=== PATIENT | male | born 1970 | race Caucasian/White ===

== ENCOUNTER 2024-01-05 07:14 | Inpatient (IN) | payer BC, OTHER ==
[2024-01-05] VITALS (21 sets, daily range): BP systolic 115–149; BP diastolic 75–99; PULSE 106–123; RESP 11–20; TEMP 97.5–98.7; O2SAT 92–99
[~2024-01-05] VITALS: Ht 172.7 cm; Wt 88.9 kg
--- NOTE | 2024-01-05 07:30 | NUR ---
Ohlfs in room with patient
[2024-01-05 07:43] LABS: EOSINOPHILS # (AUTO) 0.3 X10'3 (0-0.9); MONOCYTES # (AUTO) 0.7 X10'3 (0-0.9)
[2024-01-05 07:45] LABS: BASOPHILS % (AUTO) 0.8 % (0-1); EOSINOPHILS % (AUTO) 5.2 % (0-6); HEMATOCRIT 37.6 % (42.0-52.0); HEMOGLOBIN 13.1 g/dl (14.0-17.9); LYMPHOCYTES % (AUTO) 55.1 % (21-51); MEAN CORPUSCULAR HEMOGLOBIN 36.1 PG (27.0-31.0); MEAN CORPUSCULAR HGB CONC 34.8 g/dL (33.0-36.5); MEAN CORPUSCULAR VOLUME 103.9 FL (78-98); MEAN PLATELET VOLUME 6.3 FL (7.4-10.4); MONOCYTES % (AUTO) 13.5 % (2-12); NEUTROPHILS # (AUTO) 1.4 X10'3 (1.8-7.7); NEUTROPHILS % (AUTO) 25.4 % (42-75); PLATELET COUNT 299 X10'3 (140-440); RED BLOOD COUNT 3.62 X10'6 (4.70-6.10); RED CELL DISTRIBUTION WIDTH 13.1 % (11.5-14.5); WHITE BLOOD COUNT 5.4 X10'3 (4.5-11.0)
--- NOTE | 2024-01-05 07:47 | NUR ---
US in room with patient
[2024-01-05 08:02] LABS: ALBUMIN 4.1 G/DL (3.4-5.0); ANION GAP 14 (8-16); BLOOD UREA NITROGEN 32 MG/DL (7-18); BUN/CREATININE RATIO 22.5 (10.0-20.0); CALCIUM 9.6 MG/DL (8.5-10.1); CHLORIDE 98 MMOL/L (99-107); CREATININE 1.42 MG/DL (0.60-1.10); GLUCOSE 110 MG/DL (70-104); LIPASE 45 U/L (16-77); POTASSIUM 3.6 MMOL/L (3.5-5.1); SODIUM 139 MMOL/L (135-145); TOTAL CARBON DIOXIDE 27.5 MMOL/L (24-32); eCRCL 57 ML/MIN; eGFR 52 ML/MIN
[2024-01-05 08:26] LABS: PLATELET ESTIMATE NORMAL; TOTAL CELLS COUNTED 100
--- NOTE | 2024-01-05 08:42 | NUR ---
patient ambulated to the bathroom.
[2024-01-05 08:48] LABS: BILIRUBIN,URINE NEGATIVE (Neg); CLARITY,URINE CLEAR (Clear); COLOR,URINE YELLOW (Yellow); GLUCOSE, URINE NEGATIVE (Neg); KETONES,URINE NEGATIVE (Neg); LEUKOCYTE ESTERASE ,URINE NEGATIVE (Neg); NITRITES, URINE NEGATIVE (Neg); OCCULT BLOOD,URINE NEGATIVE (Neg); PROTEIN,URINE NEGATIVE (Neg); UROBILINOGEN,URINE 0.2 E.U/dL (0.2-1.0)
[2024-01-05 08:52] LABS: UA COLLECTION TYPE CLN CATCH MIDSTREAM
[2024-01-05] MEDS: normal saline 1000ML IV soln IVB ONE (08:52)
--- NOTE | 2024-01-05 08:52 | NUR ---
patient back in room and attached to monitor
[2024-01-05] MEDS ORDERED: FLUT15.87 NAS (09:10)
--- NOTE | 2024-01-05 09:17 | NUR ---
Dr Summers hospitalist resident at bedside to assess pt and discuss plan of care.
[2024-01-05] MEDS ORDERED: magnesium sulf-water 2g/50mL 50 ML IV PRN (09:30)
[2024-01-05] MEDS ORDERED: magnesium Cl slow-release 64mg tablet PO PRN (09:30)
[2024-01-05] MEDS ORDERED: potassium Cl 40MEQ/1/2NS 520ml 520 ML IV PRN (09:30)
[2024-01-05] MEDS ORDERED: magnesium sulf-water 4G/100mL 100 ML IV PRN (09:30)
[2024-01-05] MEDS ORDERED: mag hydrox/Alum hydrox/simeth 30ml oral suspension PO PRN (09:30)
[2024-01-05] MEDS ORDERED: magnesium hydroxide 30ml (MOM) UD suspension PO PRN (09:30)
[2024-01-05] MEDS ORDERED: potassium Cl 20 mEq SR tablet PO PRN ×2 (09:30)
[2024-01-05] MEDS: normal saline 1000ml 1,000 ML IV SCH (09:33)
--- NOTE | 2024-01-05 09:41 | NUR ---
During general assessment of the patient, Mr. Bettencourt mentioned that during his last surgery for cervical fusion he had a episode of pulmonary edema after receiving anestheasia.
[2024-01-05] MEDS ORDERED: CETI10TA14 (09:51)
[2024-01-05] MEDS ORDERED: CHLO25TA10 PO ×2 (09:51→16:57)
[2024-01-05] MEDS ORDERED: FINA1TAB13 PO (09:51)
[2024-01-05] MEDS ORDERED: LOSA50TA64 (09:51)
[2024-01-05] MEDS ORDERED: PRAV20TA4 (09:51)
[2024-01-05] MEDS: ondansetron/PF 4mg/2ml inj IV PRN (09:59)
[2024-01-05] MEDS: morphine 2 MG/ML inj. syringe IV PRN (10:03)
[2024-01-05] MEDS ORDERED: morphine 2 MG/ML inj. syringe IV PRN (11:05)
[2024-01-05] MEDS ORDERED: meperidine/PF 25mg/ml syringe IV PRN ×2 (11:05)
[2024-01-05] MEDS ORDERED: ondansetron/PF 4mg/2ml inj IV PRN (11:05)
[2024-01-05] MEDS ORDERED: proCHLORperazine 10 MG/2 ml inj IV PRN (11:05)
[2024-01-05] MEDS: midazolam 1 mg/ML 2ml injection ONE (11:13)
[2024-01-05] MEDS ORDERED: rocuronium 10mg/ml inj IV ONE (11:42)
[2024-01-05] MEDS ORDERED: midazolam 1 mg/ML 2ml injection ONE (11:42)
[2024-01-05] MEDS ORDERED: propofol inj 20 ML IV ONE (11:42)
[2024-01-05] MEDS ORDERED: fentaNYL /PF 50mcg/ml 5ml ampule ONE (11:42)
[2024-01-05] MEDS ORDERED: sevoflurane 250ml liquid IH ONE (11:42)
[2024-01-05] MEDS ORDERED: ceFAZolin 1000mg inj ONE ×2 (11:46)
[2024-01-05] MEDS ORDERED: dexamethasone sod phosphate 4mg/ml inj. ONE (11:59)
[2024-01-05] MEDS ORDERED: albumin (Human) 5% 250ml 250 ML IV ONE (12:09)
[2024-01-05] MEDS: BUPIVAcaine 2.5mg/ml inj 50ml vial (contains preservative) ONE ×2 (12:27→12:55)
[2024-01-05] MEDS: bacitracin 15gm ointment TP ONE (12:32)
[2024-01-05] MEDS: BUPIVACAINE liposomal/PF 13.3 MG/ML vial IM ONE (12:55)
[2024-01-05] MEDS ORDERED: ondansetron/PF 4mg/2ml inj ONE (13:12)
[2024-01-05] MEDS ORDERED: neostigmine methylsulfate 1 MG/ML 10ml vial ONE (13:13)
[2024-01-05] MEDS ORDERED: glycopyrrolate 0.2mg/ml inj ONE (13:15)
[2024-01-05] MEDS ORDERED: acetaminophen 1,000mg/100ml IV 100 ML IV ONE (13:15)
[2024-01-05] MEDS: ringers solution, lacted 1,000 ML IV SCH (13:26)
--- NOTE | 2024-01-05 13:26 | NUR ---
Received from OR via [facility], accompanied by Anesthesiologist and report given by DAMEON Anesthesiologist. PATIENT WAKING UP, NO S/S OF PAIN, V/S WNL, SCD ON , PIV 20G LEFT AC, DERMABONDED LAPS SITES CLOSED C/D/I TO ABDOMEN WITH ABDOMINAL BINDER. Addendum: 01/05/24 at 1346 by Nic Hubbard RN Amended: Links added.
[2024-01-05] MEDS: meperidine/PF 25mg/ml syringe IV PRN (13:30)
[2024-01-05] MEDS: morphine 4 MG/ML inj SYRINge IV PRN (13:59)
[2024-01-05] MEDS: oxyCODONE/APAP 5-325mg tablet PO PRN (14:00)
--- NOTE | 2024-01-05 14:43 | NUR ---
Patient in room [facility] 352. I have received report from FAHEEM SANTOSCANCER PROGRAM CONSULTANT and had the opportunity to ask questions and assume patient care.
--- NOTE | 2024-01-05 14:46 | NUR ---
PATIENT HAS MET ALL CRITERIA FOR TRANSFER TO THE SURGICAL FLOOR. VSS. DRESSINGS INTACT. BED LOW, CALL LIGHT PRESENT AND 2 RAILS UP. RN PRESENT TO ACCEPT CARE OF PATIENT AND REPORT HAS BEEN CALLED. ALL QUESTIONS ANSWERED TO ACCEPTING RN-NIEVES. Addendum: 01/05/24 at 1502 by Nic Hubbard RN Amended: Links added.
[2024-01-05] MEDS ORDERED: LOSA50TA64 PO (16:57)
[2024-01-05] MEDS: tamsulosin 0.4mg capsule PO ONE (17:08)
[2024-01-05] MEDS: chlorthalidone 25mg tablet PO SCH (17:09)
[2024-01-05] MEDS: LORazepam 2 mg/ml vial IV PRN (17:54)
--- NOTE | 2024-01-05 18:33 | NUR ---
pt. has shakiness d/t etoh withdraw, notified and pt. on protocol now. however, surgeon okayed for discharge after pt. has urinated, and discharge will be done when pt. does urinate. notified. pt. does not want to stay for a night.
--- NOTE | 2024-01-05 18:36 | NUR ---
Problems reprioritized. Patient report given TO DAVEY MARISCAL RN, questions answered & plan of care reviewed with .
--- NOTE | 2024-01-05 18:40 | NUR ---
Patient in room [facility] 347. I have received report from [] and had the opportunity to ask questions and assume patient care.
--- NOTE | 2024-01-05 19:30 | NUR ---
PATIENT VOIDED 100ML WITH 437ML RESIDUAL.
[2024-01-05] MEDS: enoxaparin 40mg/0.4ml syringe SQ SCH (19:41)
[2024-01-05] MEDS: docusate sod 100mg capsule PO SCH (19:41)
[2024-01-05] MEDS: losartan 50mg tablet PO SCH (19:43)
[2024-01-05] MEDS: K and/or MAG REPLACEMENT MC SCH (19:48)
--- NOTE | 2024-01-05 21:00 | NUR ---
PATIENT VOIDED 200ML WITH 538ML RESIDUAL. CALLED RESIDENT DR. ENGEL AND WAS INFORMED ABOUT PATIENT WITH INSTRUCTION TO HOLD DISCHARGE AND WAIT FOR TOMORROW MORNING AND CONTINUE MONITORING PATIENT'S VOIDING AND RETENTION.
--- NOTE | 2024-01-05 22:45 | NUR ---
PATIENT VOIDED 275ML WITH 490ML RESIDUAL.
--- NOTE | 2024-01-06 01:05 | NUR ---
PATIENT VOIDED 425ML WITH 506ML RESIDUAL.
[2024-01-06 02:00] VITALS: BP 135/93; PULSE 107; RESP 20; TEMP 98.1; O2SAT 95
--- NOTE | 2024-01-06 02:50 | NUR ---
PATIEHNT VOIDED 125ML WITH 569ML RESIDUAL.
--- NOTE | 2024-01-06 04:30 | NUR ---
PATIENT VOIDED 225ML WITH 689ML RESIDUAL.
--- NOTE | 2024-01-06 04:35 | NUR ---
CALLED RESIDENT DR. ENGEL AND WAS INFORMED THAT PATIENT VOIDED 225ML WITH RESIDUAL OF 689ML WITH ORDER FOR STRAIGHT CATH.
[2024-01-06 05:00] VITALS: BP 126/90; PULSE 107; RESP 20; TEMP 97.9; O2SAT 97
--- NOTE | 2024-01-06 05:00 | NUR ---
PATIENT STRAIGHT CATH ASEPTICALLY AND OBTAINED 800ML OF CLEAR YELLOW URINE.
--- NOTE | 2024-01-06 06:33 | NUR ---
Problems reprioritized. Patient report given, questions answered & plan of care reviewed with NIEVES SANTOS.
[2024-01-06 06:39] LABS: BASOPHILS % (AUTO) 0.1 % (0-1); EOSINOPHILS % (AUTO) 0 % (0-6); HEMATOCRIT 31.7 % (42.0-52.0); HEMOGLOBIN 10.8 g/dl (14.0-17.9); LYMPHOCYTES # (AUTO) 0.6 X10'3 (1.1-4.8); LYMPHOCYTES % (AUTO) 7.4 % (21-51); MEAN CORPUSCULAR HEMOGLOBIN 35.8 PG (27.0-31.0); MEAN CORPUSCULAR HGB CONC 34.2 g/dL (33.0-36.5); MEAN CORPUSCULAR VOLUME 104.9 FL (78-98); MONOCYTES # (AUTO) 0.6 X10'3 (0-0.9); MONOCYTES % (AUTO) 7.9 % (2-12); NEUTROPHILS # (AUTO) 6.6 X10'3 (1.8-7.7); NEUTROPHILS % (AUTO) 84.6 % (42-75); PLATELET COUNT 234 X10'3 (140-440); RED BLOOD COUNT 3.02 X10'6 (4.70-6.10); RED CELL DISTRIBUTION WIDTH 12.7 % (11.5-14.5); WHITE BLOOD COUNT 7.8 X10'3 (4.5-11.0)
--- NOTE | 2024-01-06 06:43 | NUR ---
Patient in room [facility] 347. I have received report from DAVEY MARISCAL RN and had the opportunity to ask questions and assume patient care.
[2024-01-06 06:44] LABS: ALBUMIN 3.5 G/DL (3.4-5.0); ANION GAP 11 (8-16); BLOOD UREA NITROGEN 18 MG/DL (7-18); CALCIUM 8.2 MG/DL (8.5-10.1); CHLORIDE 95 MMOL/L (99-107); GLUCOSE 149 MG/DL (70-104); POTASSIUM 4.1 MMOL/L (3.5-5.1); SODIUM 132 MMOL/L (135-145); TOTAL CARBON DIOXIDE 25.9 MMOL/L (24-32); eCRCL 81 ML/MIN; eGFR 78 ML/MIN
--- NOTE | 2024-01-06 07:10 | NUR ---
400ML URINE OUTPUT, 341 RESIDUAL BLADDER SCAN
[2024-01-06] MEDS: atorvastatin 10mg tablet PO SCH (07:46)
[2024-01-06] MEDS: fluticasone nasal spray 16GM bottle NS SCH (07:46)
[2024-01-06 07:48] VITALS: BP_SYST 126; PULSE 97
--- NOTE | 2024-01-06 07:51 | NUR ---
250ml output, 259 ml residual scan
[2024-01-06 08:00] VITALS: RESP 18; O2SAT 97
[2024-01-06] MEDS ORDERED: FLO0.4C PO (08:30)
[2024-01-06] MEDS: acetaminophen 325mg tablet PO PRN (09:34)
--- NOTE | 2024-01-06 10:05 | NUR ---
pt. was alert, orientated, and stable upon discharge. pt. iv canula whole and intact upon removal. pt. educated on post procedural care and diet and activities, s/s of infection, new and cont Meds with side effects, follow up appt made with surgeon. pt. safely escorted by wheelchair with staff into private vehicle with . pt. left with all belongings.
[2024-01-07] MEDS ORDERED: LORazepam 1 MG tablet PO PRN (17:25)
[2024-01-07] MEDS ORDERED: LORazepam 2 mg/ml vial IV PRN (17:25)
[2024-01-09] MEDS ORDERED: LORazepam 1 MG tablet PO PRN (17:25)
[2024-01-09] MEDS ORDERED: LORazepam 2 mg/ml vial IV PRN (17:25)
== END 2024-01-06 09:56 | disposition home or self-care (01) | DRG 355 ==
LOC: ER 07:14 → SUR 3N 12:41
PROVIDERS: ADMIT Internal Medicine; ATTEND Internal Medicine
PROC: 0WUF4JZ Supplement Abdominal Wall with Synthetic Substitute, Percutaneous Endoscopic Approach (ICD-10-PCS; principal; 2024-01-05 11:42)
DX: K42.0 Umbilical hernia with obstruction, without gangrene (principal); Z88.8 Allergy status to other drugs, medicaments and biological substances
CPT/HCPCS: 96361; 96374; 96375; 99285; Z7506; Z7508; 36415; 76705; 80048; 81003; 82948; 83690; 84484; 85007; 85025; 87081; 93005; A4615; A4618; A6258; A6449; A7000; C1758; C1781; C9290; G0378; J0131; J0690; J1100; J1650; J2060; J2175; J2250; J2270; J2405; J2704; J2710; J3010; J3490; J7030; J7120; P9045